=== PATIENT | female | born 1980 | race Caucasian/White ===

== ENCOUNTER 2016-11-23 19:42 | Inpatient (IN) ==
[2016-11-23] MEDS ORDERED: ALUM/MAG/SIMETH/LIDO VISC 1:1 30 ML BOTTLE PO STA (20:13)
[2016-11-23] MEDS ORDERED: PANTOPRAZOLE 40 MG VIAL IV STA (20:13)
[2016-11-23] MEDS ORDERED: ONDANSETRON 4 MG/2 ML VIAL IV STA (20:13)
[2016-11-23] MEDS ORDERED: HYDROmorphone 2 MG/1 ML VIAL IV STA (20:13)
[2016-11-23] MEDS ORDERED: SODIUM CHLORIDE 0.9% 1,000 ML IV STA (20:13)
[2016-11-23 20:23] LABS: Basophils # 0.1 10*3/uL (0.0-0.2); Basophils % 0.7 % (0.0-0.8); Eosinophils # 0.1 10*3/uL (0.0-0.87); Eosinophils % 1.3 % (0.00-10.9); Hematocrit 39.7 VOL% (35.7-47.0); Hemoglobin 13.1 GM/DL (12.0-16.0); Immature Granulocytes % 0.5 %; Immature Granulocytes Absolute 0.05 #; Lymphocytes # 2.7 10*3/uL (1.4-4.0); Lymphocytes % 25.7 % (21.3-54.2); Mean Corpuscular Hemoglobin 29 PG (27-34); Mean Corpuscular Volume 87.1 FL (87-102); Mean Platelet Volume 11.7 FL (9.6-12.0); Monocytes # 0.6 10*3/uL (0.11-0.8); Monocytes % 6.2 % (1.7-12.7); Neutrophils # 6.8 10*3/uL (1.4-7.4); Neutrophils % 65.6 % (38.7-73.9); Platelet Count 204 T/CUMM (130-400); Red Blood Count 4.56 MC/CUMM (3.8-5.5); Red Cell Distribution Width 13.6 % (9.3-17.3); White Blood Count 10.4 T/CUMM (4-12)
[2016-11-23 20:29] LABS: Apearance,Urine Slightly Hazy (Clear); Bacteria,Urine Occasional /HPF (Few); Bilirubin,Urine Negative (Negative); Blood, Urine Negative (Negative); Glucose,Urine (UA) Negative (Negative); Ketones,Urine Negative (Negative); Mucus,Urine Occasional /LPF (Occasional); Nitrite,Urine Negative (Negative); Protein,Urine Negative; RBC,Urine 1 /HPF (0-4); Squamous Epithelial Cell,Urine Occasional /HPF (0-10); Urine Color Yellow (Yellow); Urine Specific Gravity 1.015 (1.001-1.035); Urine Urobilinogen < 2.0 EU/DL (0.2-1.0); WBC,Urine 1 /HPF (0-6)
[2016-11-23] MEDS ORDERED: ALUM/MAG/SIMETH/LIDO VISC 1:1 30 ML BOTTLE PO ONE (20:31)
[2016-11-23] MEDS ORDERED: ONDANSETRON 4 MG/2 ML VIAL ONE (20:31)
[2016-11-23] MEDS ORDERED: PANTOPRAZOLE 40 MG VIAL IV ONE (20:31)
[2016-11-23] MEDS ORDERED: HYDROmorphone 2 MG/1 ML VIAL ONE (20:31)
[2016-11-23 20:37] LABS: Alanine Aminotransferase 39 U/L (13-56); Albumin 3.4 G/DL (3.4-5.0); Alkaline Phosphatase 130 U/L (45-117); Amylase 51 U/L (25-115); Aspartate Amino Transferase 24 U/L (0-37); Bilirubin,Total < 0.39 MG/DL (0.2-1.0); Blood Urea Nitrogen 9 MG/DL (7-18); Calcium 8.6 MG/DL (8.5-10.1); Glucose 99 MG/DL (74-106); Magnesium 1.5 MG/DL (1.8-2.4); Osmolality,Calculated 271.8 MOS/KG (273-304); Potassium 3.6 MMOL/L (3.5-5.1); Sodium 137 MMOL/L (136-145); Total Protein 7.8 G/DL (6.4-8.3); Troponin I Only < 0.015 NG/ML (0.00-0.045)
--- NOTE | 2016-11-23 21:11 | Ultrasound Report ---
History: Right upper quadrant abdominal pain. Nausea Date: 11/23/2016 Study: Gallbladder ultrasound Comparison exam: No previous available Real-time ultrasound images are captured and archived. The liver measures normal at 16.6 cm length and is without focal mass lesion. There is an impacted gallstone in the neck of the gallbladder. There is gallbladder wall thickening at 5 mm. There is a positive sonographic Sherwood sign. The common bile duct measures 8.3 mm diameter. There is no intrahepatic biliary dilatation. Incidental note is made of a small simple cyst measuring 13 mm in the pancreas at the junction of the head and neck. The pancreas is otherwise unremarkable. Right kidney measures 11.7 cm in length and appears normal. Impression: Suspected acute cholecystitis. There is a gallstone impacted in the neck of the gallbladder. There is gallbladder wall thickening and positive sonographic Sherwood sign. Small nonspecific cyst in the pancreas at the junction of the head and neck PROCEDURE INTERPRETED AT [facility] DEPARTMENT OF RADIOLOGY Final Report Signed by: Dr. Jaz Holley
[2016-11-23 21:16] LABS: Lactic Acid 0.4 MMOL/L (0.4-2.0)
[2016-11-23] MEDS ORDERED: MAGNESIUM SULF RIDER 2 GM in PREMIX 1 EACH IV STA (21:43)
--- NOTE | 2016-11-23 21:44 | Emergency Department Note ---
Gideon Frost Manpreet, am scribing for, and in the presence of, Jacky Hurst MD 20:37. Natali Frost Charles R, MD, personally performed the services described in this documentation, ascribed by Ashish Meneses in my presence, and it is both accurate and complete . Arrival - Arrival Chief Complaint: Abdominal / Flank Pain ED Nursing Triage Note: C/O RUQ abd pain worsening after eating BBQ chicken tonight. Pt reports that she had an Gallbladder US scheduled for tomorrow because she has been having this pain off and on for 2 months. Pt was given 100mcg Fentanyl for pain with some relief. +Nausea/vomiting. Denies fever. Last BM this morning. Mode of Arrival: Stretcher Source: Patient, Old Records Reviewed, RN Notes Reviewed Time Seen by Provider: 11/23/16 20:08 - History of Present Illness HPI Narrative: Pt is a 36 y/o female who presents to the ED with CC of Abd pain and tenderness since yesterday. Pt states she felt the pain about 2 months ago which then became sore and later subsided. The Pt states she was scheduled to have a US of Gallbladder tomorrow.This pain radiates up to her right shoulder, accompanied by N/V, and the Pt reports a low grade subjective fever and denies flatulence. Last meal was 1400 today. Onset (ago): day(s) Consistency: constant Severity: moderate Date of Last Menstrual Period: First week of October Allergies/Adverse Reactions: Allergies Allergy/AdvReac Type Severity Reaction Status Date / Time Amoxicillin [From Amoxil] Allergy Severe RASH Verified 05/05/16 15:23 Penicillins Allergy Severe RASH Verified 08/25/15 09:27 Buspirone [From BuSpar] Allergy Intermediate Palpitation Verified 05/05/16 15:23 s Cefaclor [From Ceclor] Allergy Intermediate RASH Verified 05/05/16 15:23 Home Medications: Home Medications Medication Instructions Recorded Confirmed Type Escitalopram [Lexapro] 20 mg PO DAILY 11/23/16 11/23/16 History Gabapentin Cap/Tab [Neurontin 300 mg PO BID 11/23/16 11/23/16 History Cap/Tab] Review of System - Review of System 12 point system: reviewed and no additional remarkable complaints except as stated - Review of System Constitutional: Present: fever. Absent: diaphoresis Cardiovascular: Absent: chest pain Gastrointestinal: Present: abdominal pain, nausea, diarrhea, other (Feels bloated). Absent: vomiting Musculoskeletal: Present: other (Abd pain radiates to right shoulder). Absent: arm pain, back pain, lower back pain, leg pain, neck pain Neurological: Absent: headache Medical,Surgical,& Family Hx - Medical History Musculoskeletal: History of: Back/Neck Problems - Social History Smoking Status: Current every day smoker Frequency of Alcohol Use: None Type of Drug Use: None Exam Vital Signs: Vital Signs Temperature 98.7 F 11/23/16 19:48 Pulse Rate 90 11/23/16 20:40 Respiratory Rate 20 11/23/16 20:40 Blood Pressure 159/139 11/23/16 20:40 O2 Sat by Pulse Oximetry 97 11/23/16 20:40 - General General appearance: alert - Head Head exam: Present: atraumatic, normocephalic - Eye Eye exam: Present: normal appearance, PERRL, EOMI - ENT ENT exam: Present: normal exam, normal oropharynx, mucous membranes moist, TM's normal bilaterally - Neck Neck exam: Present: normal inspection, full ROM, trachea midline. Absent: tenderness - Chest Chest inspection: Present: normal inspection, symmetric chest wall rise. Absent : tenderness - Respiratory Respiratory exam: Present: normal lung sounds bilaterally. Absent: accessory muscle use - Cardiovascular Cardiovascular exam: Present: normal rhythm, tachycardia, normal heart sounds - Abdominal Exam Abdominal exam: Present: distention (Slight Abd Distention), tenderness, diminished bowel sounds, Sherwood's sign - Rectal Exam Rectal exam: Present: deferred - Extremities Exam Extremities exam: Present: normal inspection, full ROM. Absent: tenderness - Back Exam Back exam: Present: normal inspection, full ROM. Absent: tenderness - Neurological Exam Neurological exam: Present: alert, oriented X3, CN II-XII intact - Psychiatric Psychiatric exam: Present: normal affect - Skin Skin exam: Present: warm, normal color. Absent: pallor Course - Consultations Consultation #1: Dr. Fowler will admit patient Time: 22:20 Results - Labs CBC & BMP: 11/23/16 19:51 11/23/16 19:51 Lab Results: I have reviewed the patients labs Labs: Laboratory Tests 11/23/16 11/23/16 11/23/16 18:51 19:51 19:51 WBC 10.4 RBC 4.56 Hgb 13.1 Hct 39.7 Plt Count 204 Sodium 137 Potassium 3.6 Chloride 102 Carbon Dioxide 24 BUN 9 Creatinine 0.70 GFR Calculation 121 BUN/Creatinine Ratio 12.00 Calculated Osmolality 271.8 L Magnesium 1.5 L Alkaline Phosphatase 130 H Globulin 4.4 H Albumin/Globulin Ratio 0.7 L Urine pH 6.0 Ur Specific [place] 1.015 Urine Urobilinogen < 2.0 H Urine RBC 1 Urine WBC 1 Urine Test Negative Disposition Clinical Impression: Acute cholecystitis Case discussed with: patient, patient's family Disposition: Still a Patient Condition: Stable Time of Disposition: 22:21
--- NOTE | 2016-11-23 21:54 | XRay Report ---
History: Abdominal pain Date: 11/23/2016 Study: Flat and erect abdomen Comparison exam: No previous similar There is no evidence of pneumoperitoneum. The bowel gas pattern is nonobstructive without gross mass lesion. Metallic density tubal ligation clips overlie the pelvis bilaterally. There is no acute osseous abnormality. Impression: No acute abdominal process PROCEDURE INTERPRETED AT [facility] DEPARTMENT OF RADIOLOGY Final Report Signed by: Dr. Jaz Holley
--- NOTE | 2016-11-23 21:58 | XRay Report ---
History: Abdominal pain Date: 11/23/2016 Study: Chest x-ray AP portable Comparison exam: No previous The cardiomediastinal silhouette and pulmonary vasculature are unremarkable. The lungs and pleural spaces are clear. The osseous structures are unremarkable. Impression: No acute cardiopulmonary process PROCEDURE INTERPRETED AT [facility] DEPARTMENT OF RADIOLOGY Final Report Signed by: Dr. Jaz Holley
[2016-11-23] MEDS ORDERED: MAGNESIUM SULF RIDER 50 ML IV ONE (22:07)
[2016-11-23] MEDS ORDERED: ACETAMINOPHEN 325 MG TABLET PO PRN (23:03)
[2016-11-23] MEDS ORDERED: ONDANSETRON 4 MG/2 ML VIAL IV PRN (23:03)
[2016-11-23] MEDS: HYDROmorphone 2 MG/1 ML VIAL IV PRN (23:28)
[2016-11-23] MEDS: LEVOFLOXACIN INJ 750 MG in PREMIX 1 EACH IV SCH (23:47)
[2016-11-23] MEDS: SODIUM CHLORIDE 0.9% 1,000 ML IV SCH (23:47)
[2016-11-24] MEDS: metroNIDAZOLE INJ 500 MG in PREMIX 1 EACH IV SCH ×3 (01:52→17:52)
[2016-11-24] MEDS: HYDROmorphone 2 MG/1 ML VIAL IV PRN ×8 (04:22→22:42)
--- NOTE | 2016-11-24 07:02 | General Surg History&Physical ---
Assessment and Plan (1) Acute cholecystitis Status: Acute Assessment and plan: Impression: Acute cholecystitis Plan: Ultrasound report reviewed. Patient has gallstones and thickened gallbladder wall. Her exam and history are consistent with acute cholecystitis. I discussed options with the patient including antibiotics versus percutaneous cholecystostomy tube versus cholecystectomy. Patient like to proceed with surgery. We discussed the procedure for removing her gallbladder Houtz performed and anticipated recovery. The risk of the procedure including bleeding, infection, damage to surrounding structures including the biliary tree, need for further surgery were all discussed in detail and she would like to proceed. Current Visit: Yes History of Present Illness Chief complaint: abdominal pain History of present illness: Ms. Ramos is a 36 year old female presents with a several day history of right upper quadrant abdominal pain. Pain has progressively worsened. Associated with nausea and vomiting. Patient has had prior attacks similar to this in the past which would last for several hours and then improved. In the past it has been related to eating fatty greasy foods. This time her pain persisted and she eventually came to the emergency room. She denies shortness of breath or chest pain. She has no heart or lung problems that she knows of. Past medical history is significant for depression and a pinched nerve in her back. She's not had any fever. Bowel habits have been normal. Home Medications Medication Instructions Recorded Confirmed Type Escitalopram [Lexapro] 20 mg PO BEDTIME 11/23/16 11/23/16 History Gabapentin Cap/Tab [Neurontin 300 mg PO BID 11/23/16 11/23/16 History Cap/Tab] Allergies Allergy/AdvReac Type Severity Reaction Status Date / Time Amoxicillin [From Amoxil] Allergy Severe RASH Verified 05/05/16 15:23 Penicillins Allergy Severe RASH Verified 08/25/15 09:27 Buspirone [From BuSpar] Allergy Intermediate Palpitation Verified 05/05/16 15:23 s Cefaclor [From Ceclor] Allergy Intermediate RASH Verified 05/05/16 15:23 Medical,Surgical,& Family Hx - Medical History Medical History: noncontributory Musculoskeletal: History of: Back/Neck Problems - Surgical History Reproductive Surgeries: Surgical HX of;: Tubal Ligation - Social History Smoking Status: Current every day smoker Frequency of Alcohol Use: None Type of Drug Use: None Exam - Constitutional Vitals: Period Temp Pulse Resp BP Sys/Thompson Pulse Ox Last 24 Hr 98.1 F-98.4 F 79-82 18-20 126-128/88-96 96-97 General appearance: no acute distress - Head Head exam: Present: normocephalic - ENT Mouth exam: Present: normal external inspection - Neck Neck exam: Present: normal inspection - Respiratory Respiratory exam: Present: clear to auscultation bilaterally - Cardiovascular Cardiovascular exam: Present: RRR - GI/Abdominal GI/Abdominal exam: Present: soft (tender to palpation in the right upper quadrant. Positive Sherwood sign. Remainder of the abdominal exam is negative.) - Extremities Exam Extremities exam: Present: normal inspection - Back Exam Back exam: Present: normal inspection - Neurological Exam Neurological exam: Present: alert, oriented X3 Speech: Present: normal - Skin Skin exam: Present: normal color 12 point system: reviewed and no additional remarkable complaints except as stated Results - Labs CBC & BMP: 11/23/16 19:51 11/23/16 19:51 Lab Results: I have reviewed the past 24 hour labs
--- NOTE | 2016-11-24 07:23 | EKG Report ---
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
[2016-11-24 07:50] LABS: Basophils % 0.6 % (0.0-0.8); Eosinophils # 0.1 10*3/uL (0.0-0.87); Eosinophils % 0.7 % (0.00-10.9); Hematocrit 35.1 VOL% (35.7-47.0); Hemoglobin 11.8 GM/DL (12.0-16.0); Immature Granulocytes % 0.4 %; Immature Granulocytes Absolute 0.03 #; Lymphocytes # 1.4 10*3/uL (1.4-4.0); Lymphocytes % 20.6 % (21.3-54.2); Mean Corpuscular HGB Conc 33.6 GM/DL (32-36); Mean Corpuscular Hemoglobin 29 PG (27-34); Mean Corpuscular Volume 85.8 FL (87-102); Mean Platelet Volume 11.4 FL (9.6-12.0); Monocytes # 0.5 10*3/uL (0.11-0.8); Monocytes % 6.4 % (1.7-12.7); Neutrophils % 71.3 % (38.7-73.9); Platelet Count 179 T/CUMM (130-400); Red Blood Count 4.09 MC/CUMM (3.8-5.5); Red Cell Distribution Width 13.7 % (9.3-17.3)
[2016-11-24 08:22] LABS: Alanine Aminotransferase 55 U/L (13-56); Albumin 2.9 G/DL (3.4-5.0); Alkaline Phosphatase 132 U/L (45-117); Aspartate Amino Transferase 40 U/L (0-37); Bilirubin,Total < 0.39 MG/DL (0.2-1.0); Blood Urea Nitrogen 5 MG/DL (7-18); Calcium 7.9 MG/DL (8.5-10.1); Glucose 103 MG/DL (74-106); Osmolality,Calculated 277.3 MOS/KG (273-304); Potassium 4.1 MMOL/L (3.5-5.1); Sodium 141 MMOL/L (136-145); Total Protein 6.2 G/DL (6.4-8.3)
[2016-11-24] MEDS: PANTOPRAZOLE 40 MG VIAL IV SCH (09:02)
[2016-11-24] MEDS ORDERED: KETOROLAC 30 MG/1 ML VIAL ONE (12:20)
[2016-11-24] MEDS ORDERED: NEOSTIGMINE 10 MG/10 ML VIAL ONE (12:20)
[2016-11-24] MEDS ORDERED: ONDANSETRON 4 MG/2 ML VIAL ONE (12:20)
[2016-11-24] MEDS ORDERED: PROPOFOL 200 MG/20 ML VIAL IV ONE (12:20)
[2016-11-24] MEDS ORDERED: ROCURONIUM 100 MG/10 ML VIAL IV ONE (12:20)
[2016-11-24] MEDS ORDERED: DEXAMETHASONE 10 MG/1 ML VIAL ONE (12:20)
[2016-11-24] MEDS ORDERED: LIDOCAINE 2% 5 ML VIAL ONE (12:20)
[2016-11-24] MEDS ORDERED: GLYCOPYRROLATE 0.4 MG/2 ML VIAL ONE (12:20)
--- NOTE | 2016-11-24 13:51 | Operative Note ---
Date of procedure: 11/24/16 Pre-op diagnosis: Acute cholecystitis Post-op diagnosis: same (Also with an enlarged periportal lymph node) Procedure: Procedure performed: #1 laparoscopic cholecystectomy with intraoperative cholangiogram #2 excisional biopsy of periportal lymph node Procedure in detail: After informed consent was obtained the patient was taken to the operating suite and laid supine on the operating table. After general anesthesia initiated the abdomen was prepped and draped in usual sterile fashion. After procedural pause local anesthetic infiltrated the skin and subcutaneous tissue above the umbilicus. Incision my dissection carried down to the fascia the fascia grasped with [place]'s and elevated. Fascial incision was made. Abdominal cavity was entered bluntly. Finger sweep revealed no adhesions. Craft trocar placed under direct visualization. Pneumoperitoneum achieved. The camera inserted. Bowel mesentery inspected found to be free of any violation. Next patient was placed in reverse Trendelenburg position rotated to the left. 2 5 mm right upper quadrant trochars and an 11 mm subxiphoid trocar was placed all under visualization. The gallbladder identified. It was edematous and inflamed. It was unable to be grasped and a cholecystotomy was performed. There was lianna purulence within the gallbladder that was suctioned out. The gallbladder decompressed. It was then able to be grasped and retracted superiorly. Infundibulum of the gallbladder retracted towards the right hip. Dissection carried out from lateral to medial approach and the triangle of [place]. Cystic duct and cystic artery were identified and isolated. Using a critical view technique these are the only 2 structures entering the gallbladder. A clip was placed at the junction of the cystic duct neck of the gallbladder and partial transection made on the cystic duct. Cholangiocatheter inserted and secured in place. Intraoperative cholangiogram performed. The tip of the catheter appeared to advance all the way to the common bile duct. The common bile duct was easily seen during the procedure. The cystic duct common bile duct intra-and extrahepatic ducts all filled with no filling defects identified. Contrast seen entering small bowel. Cholangiogram catheter removed and 2 clips placed on the cystic duct just distal to the partial transection and the transection completed. Just below this near the confluence of the cystic duct and common bile duct there was a very enlarged lymph node present. This was bluntly dissected free and removed and sent as a separate specimen. Next the cystic artery was triple clipped and transected and the gallbladder was removed from the gallbladder fossa using hook cautery and placed in an Endo Catch sac. Right upper quadrant was irrigated and suctioned there was excellent hemostasis and the clips inspected and found to be intact no leakage of bilious or sanguinous fluid. Clips completely traversed the cystic duct and cystic artery. The trochars and Endo Catch sac were removed as the abdomen desufflated. Fascia at the Craft trocar site closed using 0 Vicryl [id number] interrupted suture. Wounds irrigated and suctioned. Deep dermal layer closed with 3-0 Vicryl. Skin closed with jason. Sterile dressings applied. Patient was asked by recovery in stable condition. All lap and needle counts correct at the end of the case. Anesthesia: GETA Surgeon / Physician: Ozzy Fowler Estimated blood loss: other (Less than 25 cc) Specimens: other (Gallbladder, periportal lymph node) Condition: stable Disposition: PACU Results - Labs CBC & BMP: 11/24/16 07:37 11/24/16 07:37 Discharge Plan - Discharge Medications No Action Gabapentin Cap/Tab [Neurontin Cap/Tab] 300 mg PO BID Escitalopram [Lexapro] 20 mg PO BEDTIME - Follow Up or Referral - Forms/Instructions
--- NOTE | 2016-11-24 13:58 | Anesthesia Post-Op ---
Anesthesia Post OP - Post Ansesthetic Evaluation Patient seen in post op: Yes Resp: within normal limits CV: within normal limits Mental: within normal limits Temp: within normal limits [place]-Kf-Alvpxdbsh: within normal limits Nausea and Vomiting: within normal limits Pain: within normal limits
[2016-11-24] MEDS ORDERED: SEVOFLURANE 1 UNIT/15 MINUTE INH ONE (14:02)
[2016-11-24] MEDS ORDERED: fentaNYL 100 MCG/2 ML VIAL ONE (14:03)
[2016-11-24] MEDS ORDERED: ACETAMINOPHEN 1,000 MG/100 ML VIAL IV ONE (14:03)
[2016-11-24] MEDS ORDERED: MIDAZOLAM 2 MG/2 ML VIAL ONE (14:03)
[2016-11-24] MEDS ORDERED: LACTATED RINGERS 1,000 ML IV ONE (14:03)
[2016-11-24] MEDS ORDERED: ONDANSETRON 4 MG/2 ML VIAL IV PRN (14:15)
[2016-11-24] MEDS ORDERED: LACTATED RINGERS 1,000 ML IV SCH (14:30)
--- NOTE | 2016-11-24 15:40 | Event Note ---
Pt seen and examined p/o. Pt reports cramping RUQ pain which is mild-moderate. No CP, SOB, wheeze or cough. VSS HEENT: atraumatic/normocephalic Heart: RRR Lungs: CTAB Abd: dressings c/d/i. Abd soft, and nondistended. Appropriate p/o tenderness. BS present - hypoactive. Ext: Samir hose in place. Toes with BCR. Calves soft and NT. No pretibial edema. A/p Pt appears stable at p/o check. We will advance her diet as tolerated. Analgesics and anti-emetics PRN available. Encouraged IS and ambulation with assistance. Plan for d/c in am if progressing appropriately.
--- NOTE | 2016-11-24 16:44 | Fluoroscopy Report ---
History: Patient with abdominal pain undergoing cholecystectomy Date: 11/24/2016 Study: Intraoperative cholangiogram Comparison exam: No previous similar Contrast material was injected into the biliary tree via the cystic duct stump by Dr. Garcia in this patient undergoing cholecystectomy. 19 seconds of fluoroscopy time was utilized. 16 images were captured and archived. The common bile duct is normal in caliber without choledochal stone or abnormal stricture. There is no abnormal biliary dilatation or obvious intrahepatic ductal pathology. There is contrast material in second portion of the duodenum compatible with patency of the common bile duct. Impression: Normal intraoperative cholangiogram in this patient undergoing cholecystectomy PROCEDURE INTERPRETED AT [facility] DEPARTMENT OF RADIOLOGY Final Report Signed by: Dr. Jaz Holley
[2016-11-24] MEDS: GABAPENTIN 300 MG CAPSULE PO SCH ×2 (17:33→21:03)
[2016-11-24] MEDS: SODIUM CHLORIDE 0.9% 1,000 ML IV SCH ×2 (17:34→17:50)
[2016-11-24] MEDS: ESCITALOPRAM 10 MG TABLET PO SCH (17:43)
[2016-11-25] MEDS: LEVOFLOXACIN INJ 750 MG in PREMIX 1 EACH IV SCH
[2016-11-25] MEDS: metroNIDAZOLE INJ 500 MG in PREMIX 1 EACH IV SCH ×2 (01:59→11:51)
[2016-11-25] MEDS: HYDROmorphone 2 MG/1 ML VIAL IV PRN ×2 (03:06→08:47)
[2016-11-25] MEDS: SODIUM CHLORIDE 0.9% 1,000 ML IV SCH ×2 (07:21)
[2016-11-25] MEDS: PANTOPRAZOLE 40 MG VIAL IV SCH (08:53)
[2016-11-25] MEDS: GABAPENTIN 300 MG CAPSULE PO SCH (08:57)
--- NOTE | 2016-11-25 11:22 | Discharge Summary ---
Hospital Course - Hospital Course Hospital Course: Patient is a 36-year-old female who presented to the emergency department with acute cholecystitis. She underwent laparoscopic cholecystectomy with cholangiogram and excision for biopsy of a periportal lymph node. Postoperatively, her pain was ultimately well controlled on oral analgesics. She was tolerating oral intake and voiding without difficulty. Pt educated to monitor bowel function and methods to manage postoperative constipation as well as signs/symptoms of ileus with which she should return to ED or notify Dr. Fowler's office. She was discharged home in good condition. No complications to note. Diagnosis - Discharge Diagnosis (1) Acute cholecystitis Status: Acute Specialty Discharge - Follow Up or Referrals Follow up with: Ozzy Fowler MD [Physician] - 12/08/16 10:45 am Discharge Plan - Discharge Data Disposition: Disch To Home/Self Care Condition at Discharge: Stable Discharge Diet: advance to your usual diet Activity: resume usual activities as tolerated, no lifting (> 10-15 lb) Hygiene: may shower (Do not submerge or rub woud. ) Driving: other (No driving while taking narcotics.) Contact your physician if you experience:: fever over 101, Difficulty voiding, Redness or swelling, Nausea/Vomiting, Shortness of breath, Bleeding, pain uncontrolled by pain medications Wound / Dressing Care Instructions: Keep incisions clean, dry and covered. - Discharge Medications New HYDROcodone/ACETAMIN 7.5-325 [[place] 7.5-325] 1 tablet PO Q4H PRN #30 tablet PRN Reason: Pain Moderate To Severe (4-10) Continue Gabapentin Cap/Tab [Neurontin Cap/Tab] 300 mg PO BID Escitalopram [Lexapro] 20 mg PO BEDTIME - Follow Up or Referral Follow Up: Ozzy Fowler MD [Physician] - 12/08/16 10:45 am - Forms/Instructions Instructions: Laparoscopic Cholecystectomy (DC) Additional Discharge Instructions: Take stool softeners as needed for bowel movement. Notify office with worsening abdominal pain and/or distension. Exam - Constitutional Vitals: Period Temp Pulse Resp BP Sys/Thompson Pulse Ox Last 24 Hr 97.2 F-98.5 F 60-114 13-20 140-192/79-109 92-100 General appearance: no acute distress - Head Head exam: Present: normal inspection, normocephalic - Eye Eye exam: Absent: conjunctival injection, scleral icterus - Respiratory Respiratory exam: Present: clear to auscultation bilaterally - Cardiovascular Cardiovascular exam: Present: regular rate and rhythm (HR obtained my me 88) - GI/Abdominal GI/Abdominal exam: Present: hypoactive bowel sounds, tenderness (appropriate p/ o tendernes), soft, other (no tympany). Absent: distended, guarding - Extremities Exam Extremities exam: Absent: calf tenderness, edema - Neurological Exam Neurological exam: Present: alert, oriented X3 - Psychiatric Psychiatric exam: Present: normal affect, normal mood - Skin Skin exam: Present: normal color, warm Discharge Results Procedures and tests throughout hospitalization: 1. Laparoscopic cholecystectomy 2. Intraoperative cholangiogram 3. Periportal lymph node biopsy Pathology of gall bladder and lymph node pending. - Imaging and Cardiology Procedure: Chest x-ray: image reviewed by me, report reviewed by me, Ultrasound : report reviewed by me DS: Provider Date of admission: 11/23/16 22:21 Primary care physician: . No PCP Attending physician on admission: Ozzy Fowler MD Discharging clinician: Archana Smith PA-C
[2016-11-25 11:28] VITALS: BP 181/98
[2016-11-25] MEDS: ESCITALOPRAM 10 MG TABLET PO SCH (11:52)
--- NOTE | 2016-11-25 15:17 | Pathology Report from [facility] ---
ACCESSION # : [id number] PATIENT NAME : Arjun Moctezuma ORDERING DR : Ozzy Fowler MD CLINICAL HX: Acute cholecystitis POST-OP DX: Same SPECIMEN INFO: #1 Gallbladder #2 Abdominal periportal lymph node GROSS DESCRIPTION: #1 "GALLBLADDER" consists of an intact gallbladder measuring 8.8 x 4.5 cm. The serosa is pink-avilez erythematous. There is a 1.5 x 0.9 cm semisolid white-avilez nodular area on the serosa. The wall averages 0.3 cm in thickness. The mucosa is erythematous pink-avilez. The lumen contains hemorrhagic mucoid material. Within the area of the cystic duct is a bosselated yellow- green stone measuring 2.0 x 1.7 cm. Hack[place] Doll Wigs sections submitted in cassette #1.#2 "ABDOMINAL PERIPORTAL LYMPH NODE" consists of a 1.7 x 1.5 x 0.8 cm hyperemic juares-avilez tissue fragment. Sectioned and submitted in cassette #2. DIAGNOSIS FOR ARJUN MOCTEZUMA: #1 GALLBLADDER: Acute and chronic cholecystitis. Cholelithiasis. No evidence of malignancy. Lymph node sent for consultation - report to follow.#2 ABDOMINAL PERIPORTAL LYMPH NODE: Sent for consultation - report to follow SERVICE DATE: 11/24/2016 REPORT DATE: 11/25/2016 PATHOLOGIST: Priya Haas III, M.D. MTDD
--- NOTE | 2017-01-14 11:28 | Physician Query Form ---
CLICK EDIT DOCUMENT TO SELECT QUERY ANSWER --> OK --> SIGN Lynn Ribeiro RN Clinical Order Desk Caller W) [phone] (f) [phone] [email or web address]: Make your selection(s) from the choices in EACH section by typing an "x" and enter comments in the comment section. Please use your independent medical judgment in providing your response. This request does not imply that any particular answer is desired or expected. CLINICAL INDICATORS: (Providers should not edit this section) Pt. admitted with acute cholecystitis and had a laparoscopic cholecystectomy with intraoperative cholangiogram and excisional biopsy of periportal lymph node. Pathology Findings: "Acute and chronic cholecystitis. Cholelithiasis" Abnormal Pathology findings are not reported unless an authorized provider indicates their clinical significance Please select the best choice: ( ) I agree with the Pathology findings ( ) I disagree with the Pathology findings ( ) No clinical significance ( ) Other/clarification of findings, please specify: ( ) Clinically unable to determine COMMENTS: PLEASE ALSO DOCUMENT RESPONSE IN PROGRESS NOTES AND/OR DISCHARGE SUMMARY Use of terms such as suspected, likely, or probable (associated with a specific diagnosis that is being evaluated, monitored, or treated as if it exists) are acceptable and can be restated in the discharge summary if not ruled out. MTDD
== END 2016-11-25 13:38 | disposition home or self-care (01) | DRG 263 ==
LOC: EDUNIT# → EDBD → N.ED 19:42 → N.EDINP 22:21 → N.3E 22:53
PROVIDERS: ADMIT Surgery; ATTEND Surgery
PROC: LAPCHOL (2016-11-24 12:20)

== ENCOUNTER 2020-08-17 10:36 | Observation (INO) ==
[2020-08-17] MEDS ORDERED: methylPREDNISolone SOD SUC 125 MG/2 ML VIAL IV STA (10:57)
[2020-08-17] MEDS ORDERED: ALBUTEROL 2.5 MG/3 ML NEB RESP TX STA ×2 (10:57→12:56)
[2020-08-17 11:35] LABS: Basophils % 0.3 % (0.0-0.8); Hematocrit 39.2 VOL% (35.7-47.0); Hemoglobin 12.9 GM/DL (12.0-16.0); Immature Granulocytes % 0.4 %; Immature Granulocytes Absolute 0.03 #; Lymphocytes # 1.6 10*3/uL (1.4-4.0); Lymphocytes % 21.5 % (21.3-54.2); Mean Corpuscular HGB Conc 32.9 GM/DL (32-36); Monocytes % 5.3 % (1.7-12.7); Neutrophils % 72.5 % (38.7-73.9); Platelet Count 225 T/CUMM (130-400); Red Blood Count 4.61 MC/CUMM (3.8-5.5); Red Cell Distribution Width 15.7 % (9.3-17.3); White Blood Count 7.6 T/CUMM (4-12)
[2020-08-17 11:53] LABS: Alanine Aminotransferase 16 U/L (13-56); Alkaline Phosphatase 83 U/L (45-117); Aspartate Amino Transferase 16 U/L (0-37); Bilirubin,Total < 0.39 MG/DL (0.2-1.0); Blood Urea Nitrogen 5 MG/DL (7-18); Estimated Glom Filtration Rate 126 ML/MIN; Glucose 97 MG/DL (74-106); Osmolality,Calculated 271.7 MOS/KG (273-304); Total Protein 6.9 G/DL (6.4-8.3)
[2020-08-17] MEDS ORDERED: ALUMINUM/MAGNES/SIMETH MAX STR 30 ML UDCUP PO PRN (13:56)
[2020-08-17] MEDS ORDERED: GLUCAGON 1 MG VIAL IM PRN (13:56)
[2020-08-17] MEDS ORDERED: NICOTINE 21 MG/24 HR PATCH TRANSDERM PRN (13:56)
[2020-08-17] MEDS ORDERED: DEXTROSE 50% 25 GM/50 ML VIAL IV PRN (13:56)
[2020-08-17] MEDS ORDERED: guaiFENesin/DM ER 600-30 MG TABLET PO PRN (13:56)
[2020-08-17] MEDS ORDERED: ACETAMINOPHEN 325 MG TABLET PO PRN (13:56)
[2020-08-17] MEDS: ALBUTEROL/IPRATROPIUM 3 ML NEB RESP TX SCH (19:51)
[2020-08-17] MEDS: ENOXAPARIN 40 MG/0.4 ML SYRINGE SUBCUT SCH (20:56)
[2020-08-17] MEDS: DOXYCYCLINE HYCLATE 100 MG CAPSULE PO SCH (20:56)
[2020-08-17] MEDS: methylPREDNISolone SOD SUC 40 MG/1 ML VIAL IV SCH (20:57)
[2020-08-18] MEDS: ALBUTEROL/IPRATROPIUM 3 ML NEB RESP TX SCH ×4 (00:09→19:06)
[2020-08-18] MEDS: methylPREDNISolone SOD SUC 40 MG/1 ML VIAL IV SCH ×3 (05:02→21:15)
[2020-08-18 06:18] LABS: Basophils % 0.1 % (0.0-0.8); Hematocrit 37.4 VOL% (35.7-47.0); Hemoglobin 12.4 GM/DL (12.0-16.0); Immature Granulocytes % 0.9 %; Immature Granulocytes Absolute 0.06 #; Lymphocytes # 1.6 10*3/uL (1.4-4.0); Lymphocytes % 23.4 % (21.3-54.2); Mean Corpuscular HGB Conc 33.2 GM/DL (32-36); Mean Corpuscular Volume 84.6 FL (87-102); Mean Platelet Volume 11.3 FL (9.6-12.0); Monocytes % 5.6 % (1.7-12.7); Platelet Count 235 T/CUMM (130-400); Red Blood Count 4.42 MC/CUMM (3.8-5.5); Red Cell Distribution Width 15.8 % (9.3-17.3); White Blood Count 6.8 T/CUMM (4-12)
[2020-08-18 06:37] LABS: Calcium 8.9 MG/DL (8.5-10.1); Osmolality,Calculated 276.4 MOS/KG (273-304)
[2020-08-18] MEDS: PANTOPRAZOLE 40 MG TABLET PO SCH (09:17)
[2020-08-18] MEDS: DOXYCYCLINE HYCLATE 100 MG CAPSULE PO SCH ×2 (09:17→21:02)
[2020-08-18] MEDS ORDERED: ALBUTEROL 2.5 MG/3 ML NEB RESP TX PRN (10:48)
[2020-08-18] MEDS ORDERED: ESCITALOPRAM 10 MG TABLET PO SCH (21:00)
[2020-08-18] MEDS ORDERED: ARIPiprazole 5 MG TABLET PO SCH (21:00)
[2020-08-18] MEDS: ENOXAPARIN 40 MG/0.4 ML SYRINGE SUBCUT SCH (21:03)
[2020-08-19] MEDS: ALBUTEROL/IPRATROPIUM 3 ML NEB RESP TX SCH ×3 (01:09→13:53)
[2020-08-19] MEDS: methylPREDNISolone SOD SUC 40 MG/1 ML VIAL IV SCH ×2 (06:28→12:26)
[2020-08-19] MEDS: DOXYCYCLINE HYCLATE 100 MG CAPSULE PO SCH (09:41)
[2020-08-19] MEDS: PANTOPRAZOLE 40 MG TABLET PO SCH (09:41)
[2020-08-19] MEDS ORDERED: BUDESONIDE/FORMOTEROL 80-4.5 INHALER 6.9 GM INH SCH (11:00)
[2020-08-19 15:53] VITALS: BP 157/84
== END 2020-08-19 17:55 | disposition home or self-care (01) ==
LOC: N.ED 10:36 → N.EDINP 10:36 → SUATTDRO 13:56 → N.EDINP 15:32 → N.3E 15:49
PROVIDERS: ADMIT Internal Medicine; ATTEND Internal Medicine